=== PATIENT | male | born 2005 | race Two or more races ===

== ENCOUNTER 2024-04-24 22:17 | Emergency (ER) | payer OTHER ==
[~2024-04-24] VITALS: Ht 177.8 cm; Wt 67.0 kg
[2024-04-24] MEDS: SILVER SULFADIAZINE 1 % TOPICAL CREAM 50GM TOP ONE (22:34)
[2024-04-25 00:52] VITALS: BP 134/76; PULSE 88; RESP 18; TEMP 98.4
[2024-04-25 00:59] VITALS: O2SAT 97
== END 2024-04-25 01:08 | disposition home or self-care (01) ==
LOC: ER 22:17
DX: T20.26XA Burn of second degree of forehead and cheek, initial encounter (principal); T20.24XA Burn of second degree of nose (septum), initial encounter; X08.8XXA Exposure to other specified smoke, fire and flames, initial encounter; Y93.89 Activity, other specified; Y92.89 Other specified places as the place of occurrence of the external cause; Y99.8 Other external cause status
CPT/HCPCS: 16000